=== PATIENT | male | born 1945 | race Caucasian/White ===

== ENCOUNTER 2017-01-12 12:43 | Outpatient (CLI) ==
[2017-01-12 13:09] LABS: BASOPHILS # (AUTO) 0.1 K/uL (0-0.2); BASOPHILS % (AUTO) 0.5 % (0.0-3.0); EOSINOPHILS # (AUTO) 0.2 K/ul (0.0-0.7); EOSINOPHILS % (AUTO) 1.9 % (0.0-7.0); HEMATOCRIT 42.3 % (42.0-52.0); HEMOGLOBIN 14.1 g/dl (14.0-18.0); LYMPHOCYTES % (AUTO) 20.8 (10.0-50.0); MEAN CORPUSCULAR HEMOGLOBIN 30.4 pg (27.0-31.0); MEAN CORPUSCULAR HGB CONC 33.3 (31.8-35.4); MEAN CORPUSCULAR VOLUME 91.2 fl (80.0-94.0); MONOCYTES # (AUTO) 0.6 K/uL (0.4-2.0); MONOCYTES % (AUTO) 6.7 (0-10); NEUTROPHILS # (AUTO) 6.6 K/ul (2.0-6.9); NEUTROPHILS % (AUTO) 69.1; PLATELET COUNT 236 10^3/uL (140-440); RED BLOOD COUNT 4.64 10^6/ul (4.70-6.10); WHITE BLOOD COUNT 9.47 K/ul (4.2-10.2)
[2017-01-12 13:53] LABS: ALBUMIN 3.9 g/dL (3.4-5.0); ALBUMIN/GLOBULIN RATIO 0.89; ANION GAP 16.3; BILIRUBIN,TOTAL 0.5 mg/dL (0.00-1.20); BUN/CREATININE RATIO 13.66; CALCIUM 10.6 mg/dL (8.2-10.2); CHOL/HDL RATIO 4.8 (4.5-6.4); CREATININE 1.39 mg/dL (0.60-1.10); POTASSIUM 4.3 mmol/L (3.5-5.1); TOTAL PROTEIN 8.3 g/dL (5.8-8.1)
== END 2017-01-12 12:44 | disposition home or self-care (01) ==
LOC: LAB 12:43
PROVIDERS: ATTEND Emergency Medicine
DX: E11.9 Type 2 diabetes mellitus without complications (principal); E78.5 Hyperlipidemia, unspecified; I10 Essential (primary) hypertension; I25.10 Atherosclerotic heart disease of native coronary artery without angina pectoris
CPT/HCPCS: 36415; 80053; 80061; 83036; 84443; 85025

== ENCOUNTER 2017-04-13 12:53 | Outpatient (CLI) | payer OTHER ==
[2017-04-13 13:05] LABS: BASOPHILS % (AUTO) 0.6 % (0.0-3.0); EOSINOPHILS # (AUTO) 0.2 K/ul (0.0-0.7); EOSINOPHILS % (AUTO) 2.5 % (0.0-7.0); HEMATOCRIT 43.3 % (42.0-52.0); HEMOGLOBIN 14.6 g/dl (14.0-18.0); LYMPHOCYTES # (AUTO) 1.8 K/uL (0.60-3.4); LYMPHOCYTES % (AUTO) 24.8 (10.0-50.0); MEAN CORPUSCULAR HEMOGLOBIN 31.5 pg (27.0-31.0); MEAN CORPUSCULAR HGB CONC 33.7 (31.8-35.4); MEAN CORPUSCULAR VOLUME 93.3 fl (80.0-94.0); MONOCYTES # (AUTO) 0.6 K/uL (0.4-2.0); MONOCYTES % (AUTO) 7.9 (0-10); NEUTROPHILS # (AUTO) 4.6 K/ul (2.0-6.9); NEUTROPHILS % (AUTO) 63.2; PLATELET COUNT 209 10^3/uL (140-440); RED BLOOD COUNT 4.64 10^6/ul (4.70-6.10); WHITE BLOOD COUNT 7.26 K/ul (4.2-10.2)
[2017-04-13 13:37] LABS: ALBUMIN/GLOBULIN RATIO 0.98; ANION GAP 15.8; BILIRUBIN,TOTAL 0.4 mg/dL (0.00-1.20); BUN/CREATININE RATIO 9.83; CALCIUM 10.5 mg/dL (8.2-10.2); CHOL/HDL RATIO 5.1 (4.5-6.4); CREATININE 1.22 mg/dL (0.60-1.10); POTASSIUM 3.8 mmol/L (3.5-5.1); TOTAL PROTEIN 8.1 g/dL (5.8-8.1)
== END 2017-04-13 12:54 | disposition home or self-care (01) ==
LOC: LAB 12:53
PROVIDERS: ATTEND Emergency Medicine
DX: E11.9 Type 2 diabetes mellitus without complications (principal); I10 Essential (primary) hypertension; I25.10 Atherosclerotic heart disease of native coronary artery without angina pectoris
CPT/HCPCS: 36415; 80053; 80061; 83036; 84443; 85025

== ENCOUNTER 2017-09-11 18:01 | Emergency (ER) | payer OTHER ==
[2017-09-11 18:08] VITALS: TEMP 99.2; BMI 29.5
--- NOTE | 2017-09-11 19:01 | ED.PDOC ---
General Stated Complaint: Knee pain. Patient states he was mowing his grass today and slipped twisted his rt knee, falling to the ground on hip and knee. Complains of pain along Rt infrapatellar region and medial knee. Could not place weight on rt leg after accident Time Seen by Physician: 18:50 Mode of Arrival: Wheelchair Information Source: Patient, Family Exam Limitations: No limitations Nursing and Triage Documentation Reviewed and Agree: Yes Reviewed sepsis parameters & appropriate labs ordered?: Yes System Inflammatory Response Syndrome: Not Applicable System Inflammatory Response Syndrome: Not Applicable <WHITNEY ETIENNE - Last Filed: 09/11/17 19:51> <MARY CARMEN VEGAS - Last Filed: 09/12/17 03:19> ED Provider: Dr. MARY CARMEN VEGAS Chief Complaint: Knee Pain/Injury Primary Care Provider: [facility] Sepsis Protocol: For patient's 13 years and over: Temp is 96.8 and below OR 101 and greater Pulse >90 BPM Resp >20/minute Acutely Altered Mental Status Are patient's symptoms suggestive of a new infection, such as: -Pneumonia -Skin, Soft Tissue -Endocarditis -UTI -Bone, Joint Infection -Implantable Device -Acute Abdominal Infection -Wound Infection -Meningitis -Blood Stream Catheter Infection -Unknown Musculoskeletal Complaint Exam - Knee Pain Complaint/Exam Mechanism of Injury: Reports: Trauma Symptoms Are: Still present Onset of Pain: Reports: Immediate Initial Severity: Moderate Current Severity: Moderate Location: Reports: Diffuse Character: Reports: Sharp, Aching Alleviating: Reports: Rest Aggravating: Reports: Movement, Weight bearing <WHITNEY ETIENNE - Last Filed: 09/11/17 19:51> Review of Systems - Review Of Systems Constitutional: Reports: No symptoms Musculoskeletal: Reports: Joint pain, Joint swelling All Other Systems: Reviewed and Negative <MARY CARMEN VEGAS - Last Filed: 09/12/17 03:19> Past Medical History - Past Medical History Previously Healthy: Yes Endocrine: Reports: None, DM 2, Dyslipidemia Cardiovascular: Reports: None, Hypertension Respiratory: Reports: None, COPD Hematological: Reports: None Gastrointestinal: Reports: None, GERD Genitourinary: Reports: None Neuro/Psych: Reports: None Musculoskeletal: Reports: None, Arthritis, Back Pain Cancer: Reports: None - Surgical History General Surgical History: Reports: None - Family History Family History: Reports: None - Social History Smoking Status: Current every day smoker, Heavy tobacco smoker Hx Substance Use: No Alcohol Screening: None <WHITNEY ETIENNE - Last Filed: 09/11/17 19:51> Physical Exam - Physical Exam Appearance: Well-appearing, No pain distress, Well-nourished Eyes: MARIAMA, EOMI, Conjunctiva clear ENT: Ears normal, Nose normal, Oropharynx normal Respiratory: Airway patent, Breath sounds clear, Breath sounds equal, Respirations nonlabored Cardiovascular: RRR, Pulses normal, No rub, No murmur GI/: Soft, Nontender, No masses, Bowel sounds normal, No Organomegaly Musculoskeletal: Normal strength (No deformity), ROM intact, No edema, No calf tenderness, Limited ROM (Rt knee painful with ROM; Neg anterior posterior drawer sign; tenderness to palpaitioo), Limited strength (Stength testing Rt Knee limited to degree of pain ) Skin: Warm, Dry, Normal color Neurological: Sensation intact, Motor intact, Reflexes intact, Cranial nerves intact, Alert, Oriented Psychiatric: Affect appropriate, Mood appropriate <WHITNEY ETIENNE - Last Filed: 09/11/17 19:51> Interpretation - Radiology Interpretation Radiology Interpretation By: Radiologist Radiology Results: Negative (No acute fracture or subluxation. Possible prepatellar hematoma) Exam Interpreted: CT Scan (knee ) <MARY CARMEN VEGAS - Last Filed: 09/12/17 03:19> Critical Care Note - Critical Care Note Total Time (mins): 0 <MARY CARMEN VEGAS - Last Filed: 09/12/17 03:19> - Course Orders, Labs, Meds: Orders Category Date Time Status CRUTCHES [ED CRUTCHES] .ONCE EMERGENCY 09/11/17 19:50 Active ED SPLINT APPLICATION .ONCE EMERGENCY 09/11/17 19:50 Active Ice [ED APPLY ICE AFFECTED AREA] .ONCE EMERGENCY 09/11/17 19:[address] KNEE RIGHT WITHOUT CONTRAST Stat RADS 09/11/17 18:58 Completed Vital Signs: Temp Pulse Resp BP Pulse Ox 09/11/17 20:20 132/78 09/11/17 18:02 99.2 F 86 20 172/75 H 94 L Departure - Departure Time of Disposition: 19:45 <WHITNEY ETIENNE - Last Filed: 09/11/17 19:51> - Departure Pt referred to PMD for follow-up: Yes IPMP verified?: No Disposition Discussed With: Patient, Family <MARY CARMEN VEGAS - Last Filed: 09/12/17 03:19> - Departure Disposition: HOME SELF-CARE Discharge Problem: Strain of right knee and leg Qualifiers: Encounter type: initial encounter Qualified Code(s): S86.911A - Strain of unspecified muscle(s) and tendon(s) at lower leg level, right leg, initial encounter Instructions: Knee Pain (ED), Knee Immobilizer (ED) Condition: Good Additional Instructions: Follow up with PCP iin 2-3 days. use gen to keep it stable. Prescriptions: Ibuprofen 600 mg PO Q6HR PRN #30 tablet PRN Reason: Knee Joint Pain Allergies/Adverse Reactions: Allergies No Known Allergies Allergy (Verified 09/11/17 18:10) Home Medications: Ambulatory Orders Aspirin [Aspirin EC] 1 tab PO DAILY 08/29/13 [place]-3 Fatty Acids [Fish Oil] 4 tab PO DAILY 08/29/13 Ferrous Sulfate [Iron] 325 mg PO DAILY 11/02/14 Cyanocobalamin (Vitamin B-12) [B-12] 1,000 mcg PO DAILY tab-cap 11/09/16 Ibuprofen 600 mg PO Q6HR PRN #30 tablet 09/11/17
--- NOTE | 2017-09-11 20:03 | CT ---
EXAM: CT right knee without contrast HISTORY: Right knee pain post injury TECHNIQUE: Multi-slice transaxial helical with coronal and sagittal reformed images COMPARISON: None FINDINGS: The patellofemoral and femoral tibial joint spaces are maintained with marginal osteophytes . The bones are osteopenic. A small suprapatellar effusion is noted. The prepatellar soft tissues are prominent. No Jack's cyst is appreciated. Small loose osteochondral bodies are suggested at th e posteromedial aspect of the femoral tibial joint line. Vascular calcifications are noted. The bones are free of suspicious osteolytic or osteoblastic lesions. IMPRESSION: 1. No acute fracture or subluxation. 2. Possible prepatellar hematoma. 3. Small suprapatellar effusion. 4. Tricompartmental osteoarthritis, mild. 5. Osteopenia and ASCVD. 6. Small loose osteochondral bodies suggested the posterior aspect of the femoral tibial joint line medially. Recommend correlation with MRI.
[2017-09-11 20:25] VITALS: BP 132/78
== END 2017-09-11 20:21 | disposition home or self-care (01) ==
LOC: ED 18:01
DX: S86.911A Strain of unspecified muscle(s) and tendon(s) at lower leg level, right leg, initial encounter (principal); W19.XXXA Unspecified fall, initial encounter; F17.210 Nicotine dependence, cigarettes, uncomplicated
CPT/HCPCS: 99283

== ENCOUNTER 2017-10-10 13:00 | Outpatient (RCR) ==
--- NOTE | 2017-09-21 16:12 | RS.OPPTEV2 ---
Date of Note: 09/21/17 Visit #: 1 Date of Evaluation: 09/21/17 Payer Source: MEDICARE Treatment Diagnosis: Right knee pain, knee stiffness, instability. History of Condition/Mechanism of Injury:: Patient states he slipped and fell while mowing on 09/11/17. States he went down on the right knee and also twisted it. Reports no prior problems with the right knee joint. Prior Level of Function.....Patient was independent with: ADL's, Self Care, Ambulation/Mobility, Community Integration/Access Functional Limitations: ADL's, Lifting, Sitting, Standing, Bending, Squatting, Ambulation, Community Access/Integration Current Subjective/complaints:: Mr. Glasgow reports having pain and swelling in the right knee. His sister states he is taking Prednisone and Hydrocodone for this injury. States he was given a knee support to wear yesterday. States he uses a straight cane since he fell, when he is ambulating outside the home. His sister reports Mr. Glasgow has fallen five times since the initial fall on September 11. Mr. Glasgow says he is unsure if his knee barry or if he falls due to his balance. His sister states that she has to help him get up from a chair. Also reports he has difficulty getting in/out of a vehicle. He has a few steps to get up onto the porch. Treatment Side (optional): Right Medical History Medical History: Hypertension, COPD, Diabetes Surgical History Comments:: Stent in right LE Hx Home Medications: pantoprazole,diltiazem,fenofibrate,lisinopril,atorvastatin, low dose aspirin, prednisone,hydrocodone Patient's Goals: His goal is to get relief of right knee pain and swelling. Pain Assessment - Pain Description Pain Location: right knee joint Current Pain Intensity: 7/10 Worst Pain Intensity: not quantified Functional Outcome Measure LE Functional Scale: 12 (1280=85% impairment) - G Codes & Severity Modifier G Codes & Modifier: Mobility current CM. Mobility goal CK Source of G Code score: LE functional scale Observation - Observation Inspection: Patient presents to the department with a neoprene knee support with medial and lateral metal stays, on the right knee joint. Upon removal of the knee support, the right knee demonstrates bruising along the medial side of the knee joint. Girth Measurement Lower: Superior patella: right 38 cm, left 36 cm. mid patella: right 44 cm, left 42 cm. inferior patella: right 43.5 cm, right 42 cm Gait - Gait Pattern Gait Comments: Mr. Glasgow demonstrates need for min-mod assistance with sit to stand transfer from chair in department prior to evaluation. Pt ambulates with a straight cane in the right hand, with decreased right knee flexion during swing phase. Also exhibits decreased stance phase on the right LE. - Left Knee ROM Left Knee Extension: full extension Left Knee Flexion: 123 (degrees AROM) - Right Knee ROM Right Knee Extension: -3 degrees from full extension Right Knee Flexion: 92 (degrees AROM) - Left Knee Strength Left Knee Extension: 4+ Good + Left Knee Flexion: 5 Normal - Right Knee Strength Right Knee Extension: 4- Good- Right Knee Flexion: 4+ Good + - Special Tests Knee Anterior Drawer Test: Negative Right Knee Posterior Drawer Test: Negative Right Knee Valgus Stress Test: Positive Right (pain, with minimal hypermobility) Knee Varus Stress Test: Negative Right Knee Quita Test: Negative Right Patella Apprehension Test: Negative Right Patellar Compression Test: Positive Right Palpation Comments:: Tenderness with palpation along the medial aspect of the right knee. Reports slight tenderness with palpation immediately medial and lateral to the patella. No tenderness with palpation over the patella or quad tendon. Sensation - Sensation Right Lower Extremity: Intact/Normal Left Lower Extremity: Intact/Normal Additional Comments: Additional Comments: SLR in supine 50 degrees bilaterally. - Treatment Modality: Electrical Stim Unattended Parameters/Method Applied: X 15 mins HVGS up to 145 peak volts in X pattern over the right knee Patient Position: Supine - Heat/Cryotherapy Treatment: Cryotherapy (with Estim to the right knee) Interventions - Exercise/Activities/Manual Therapy Exercises/Activities: Patient and sister instructed in HEP of ankle pumps, quad sets, and standing HS curls for knee AROM. Given recipe for ice pack using rubbing alcohol. Advised to ice and elevate the right knee, especially at the end of the day. Manual Therapy: NA HOME EXERCISE PROGRAM: ankle pumps, quad sets, and standing HS curls for knee AROM - Charges Timed Code Treatment Minutes: 15 mins (estim) Total Treatment Time: 48 mins Procedures billed for this date of service:: EVAL Low EVALUATION COMPLEXITY LEVEL EVALUATION COMPLEXITY LEVEL: HISTORY: Medium (Diabetes, HTN), EXAM OF BODY SYSTEMS: Medium (limited knee AROM, gait difficulty, falls), CLINICAL PRESENTATION: Low, CLINICAL DECISION MAKING: Low Assessment Assessment: Patient presents to therapy with a diagnosis of right knee instability. He presents today with limited right knee AROM, decreased quad strength, and moderate swelling. He has had repeated falls since his initial injury and also reports difficulty with transfers from a chair and in/out of his vehicle. He demonstrates good potential to benefit from modalities and exercises to reduce swelling and regain functional AROM to return to his prior level of function. Patient Education: Education of diagnosis, Body/Joint mechanics, Home Exercise Program, Home Safety, Activity Modification, Education of Plan of Care Rehab Potential: Good Short Term Goals Goal #1: Pt independent and compliant with HEP. Goal to be met by: 10/01/17 Goal #2: Right knee flexion to 110 degrees. Goal to be met by: 10/05/17 Goal #3: Right quad strength 4/5. Goal to be met by: 10/05/17 Goal #4: Pt able to transfer sit to stand w/ CGA and good safety. Goal to be met by: 10/05/17 Custodial Goals Goal #1: Pt knows HEP and to continue ex's to maintain functional level at D/C. Goal to be met by: 10/31/17 Goal #2: Score on LE functional scale improved to 45% impaired or less. Goal to be met by: 10/31/17 Goal #3: Pt to amb. without assistive device community distances with good safety. Goal to be met by: 10/31/17 Goal #4: Pt able to return to mowing and other regular activities without difficulty Goal to be met by: 10/31/17 Plan - Treatment to be Provided Procedures: Therapeutic Exercises, Therapeutic Activity, Gait Training, Patient Education Modalities: Electrical Stimulation, Ultrasound/Phonophoresis, Cryotherapy - Treatment Plan Frequency: 3 X week Duration: 3 weeks ORDER # VISITS AND/OR THROUGH DATE: 10/31/17 - Treatment Code (1) Knee pain Code(s): M25.569 - PAIN IN UNSPECIFIED KNEE Qualifiers: Chronicity: acute Laterality: right Qualified Code(s): M25.561 - Pain in right knee (2) Knee stiffness Qualifiers: Laterality: right Qualified Code(s): M25.661 - Stiffness of right knee, not elsewhere classified (3) Effusion of right knee Code(s): M25.461 - EFFUSION, RIGHT KNEE Comments: M25.461 (4) Gait difficulty Code(s): R26.9 - UNSPECIFIED ABNORMALITIES OF GAIT AND MOBILITY Comments: R26.9 (5) Recurrent right knee instability Code(s): M23.51 - CHRONIC INSTABILITY OF KNEE, RIGHT KNEE Comments: M23.51
--- NOTE | 2017-09-25 15:24 | RS.OPPTDN ---
Subjective Date of Note: 09/25/17 Visit #: 2 Date of Evaluation: 09/21/17 Payer Source: MEDICARE Treatment Diagnosis: Right knee pain, knee stiffness, instability. Current Subjective/complaints:: Patient c/o R knee pain being painful and swollen. He says the treatment helped at the evaluation. His sister says he wears the neoprene brace all day and then she removes it at night and places ice behind and on top of his knee as PT instructed. Pain Assessment - Pain Description Pain Location: surrounding the R knee - Treatment Modality: Electrical Stim Unattended Parameters/Method Applied: hivolt 4 large pads crossed over the R knee after therex x 20 mins 60-140 pk volts Patient Position: Supine - Heat/Cryotherapy Treatment: Cryotherapy (anterior/posterior R knee) Interventions - Exercise/Activities/Manual Therapy Exercises/Activities: Patient receives AROM to the R knee, QS, SAQ (no weight), DF with red tband, ball squeezes, red tband for hooklying hip abd, hip abd with knee extended, AP, and heel slides. All 2x10. Total minutes of Exercise: 24 Manual Therapy: NA HOME EXERCISE PROGRAM: ankle pumps, quad sets, and standing HS curls for knee AROM - Charges Timed Code Treatment Minutes: 24 Total Treatment Time: 44 Procedures billed for this date of service:: cp, estim(un), ex2 Assessment: Patient experiencing pain relief from estim and demo improved knee flexion to near comparison to the L. Patient able to jil all therex with exception of SAQ being very fatiguing. Patient Education: Body/Joint mechanics, Home Exercise Program, Education of Plan of Care Patient demonstrates compliance with HEP?: Yes Short Term Goals Goal #1: Pt independent and compliant with HEP. Goal to be met by: 10/01/17 Progress towards Goal:: Progressing Goal #2: Right knee flexion to 110 degrees. Goal to be met by: 10/05/17 Progress towards Goal:: Progressing Goal #3: Right quad strength 4/5. Goal to be met by: 10/05/17 Goal #4: Pt able to transfer sit to stand w/ CGA and good safety. Goal to be met by: 10/05/17 Marketing Operations Intern Goals Goal #1: Pt knows HEP and to continue ex's to maintain functional level at D/C. Goal to be met by: 10/31/17 Goal #2: Score on LE functional scale improved to 45% impaired or less. Goal to be met by: 10/31/17 Goal #3: Pt to amb. without assistive device community distances with good safety. Goal to be met by: 10/31/17 Goal #4: Pt able to return to mowing and other regular activities without difficulty Goal to be met by: 10/31/17 Plan PLAN OF CARE EXPIRES ON:: 10/31/17 ORDER # VISITS AND/OR THROUGH DATE: 10/31/17 PLAN: Patient to continue with modalties and therex to the R knee
--- NOTE | 2017-09-26 14:23 | RS.OPPTDN ---
Subjective Date of Note: 09/26/17 Visit #: 3 Date of Evaluation: 09/21/17 Payer Source: MEDICARE Treatment Diagnosis: Right knee pain, knee stiffness, instability. Current Subjective/complaints:: Patient says he believes that he is doing better. Reports his swelling is down and he is performing HEP. Patient has been using his cane now into the L hand as instructed at previous visit. - Treatment Modality: Electrical Stim Unattended Parameters/Method Applied: 4 large pads crossed Hivolt @ 165 pk volts over the R knee after therex x 20 mins Patient Position: Supine - Heat/Cryotherapy Treatment: Cryotherapy (anterior/posterior knee) Interventions - Exercise/Activities/Manual Therapy Exercises/Activities: Patient receives AROM to the R knee and hamstring/heel cord stretching, QS, SAQ (no weight) 2x6, DF with red tband, ball squeezes, red tband for hooklying hip abd, hip abd with knee extended, AP, and heel slides. All 2x10. LAQ, AP x 15. Began stationary bike for x 3 mins Total minutes of Exercise: 25 Manual Therapy: NA HOME EXERCISE PROGRAM: ankle pumps, quad sets, and standing HS curls for knee AROM - Charges Timed Code Treatment Minutes: 25 Total Treatment Time: 45 Procedures billed for this date of service:: cp, estim (un), ex2 Assessment: Patient progressing well with R knee flexion and general strengthening. He is compliant with HEP and jil beginning stationary bike well. Patient Education: Education of diagnosis, Home Safety Patient demonstrates compliance with HEP?: Yes Short Term Goals Goal #1: Pt independent and compliant with HEP. Goal to be met by: 10/01/17 Progress towards Goal:: Progressing Goal #2: Right knee flexion to 110 degrees. Goal to be met by: 10/05/17 Progress towards Goal:: Met Goal #3: Right quad strength 4/5. Goal to be met by: 10/05/17 Goal #4: Pt able to transfer sit to stand w/ CGA and good safety. Goal to be met by: 10/05/17 Progress towards Goal:: Met Fpc Goals Goal #1: Pt knows HEP and to continue ex's to maintain functional level at D/C. Goal to be met by: 10/31/17 Goal #2: Score on LE functional scale improved to 45% impaired or less. Goal to be met by: 10/31/17 Goal #3: Pt to amb. without assistive device community distances with good safety. Goal to be met by: 10/31/17 Goal #4: Pt able to return to mowing and other regular activities without difficulty Goal to be met by: 10/31/17 Plan PLAN OF CARE EXPIRES ON:: 10/31/17 ORDER # VISITS AND/OR THROUGH DATE: 10/31/17 PLAN: Patient to continue with modalities and strengthening to the R knee.
--- NOTE | 2017-09-28 15:05 | RS.OPPTDN ---
Subjective Date of Note: 09/28/17 Visit #: 4 Date of Evaluation: 09/21/17 Payer Source: MEDICARE Treatment Diagnosis: Right knee pain, knee stiffness, instability. Current Subjective/complaints:: Patient says he thinks he is doing better. Reports he is walking easier and feels he is bending his knee more. He is working on HEP often. Pain Assessment - Pain Description Pain Location: R knee - Treatment Modality: Electrical Stim Unattended Parameters/Method Applied: hivolt 4 large pads hivolt @ 175-180 pk volts x 20 mins following therex to R knee crossed Patient Position: Supine - Heat/Cryotherapy Treatment: Cryotherapy (anterior/post R knee with estim) Interventions - Exercise/Activities/Manual Therapy Exercises/Activities: Patient receives AROM to the R knee and hamstring/heel cord stretching, QS, SAQ (no weight)and AA for terminal range 2x10, DF with green tband, ball squeezes, green tband for hooklying hip abd, hip abd with knee extended, AP, and heel slides. All 2x10. LAQ, AP x 15. Stationary bike forward x 4 mins. Assisted with knee brace placement. Measurements for ROM and girth taken. Total minutes of Exercise: 25 Manual Therapy: NA HOME EXERCISE PROGRAM: ankle pumps, quad sets, and standing HS curls for knee AROM - Objective Findings Observations,measurements,etc.: Superior Patella: 43 cm (42 cm L). Mid Patella: 42 cm (42 cm L). Inferior Patella: 37.75 (36 cm L). Girth measurements down by 0.5 cm to 2 cm grossly. -1 to 126 degrees R knee (L is 0 to 123 degrees) - Charges Timed Code Treatment Minutes: 25 Total Treatment Time: 45 Procedures billed for this date of service:: cp, estim (un), ex2 Assessment: Patient demo decreased swelling and improved ROM to compare with the L knee. Patient progressing with all general strengthening, only having difficulty with end range SAQ. Patient Education: Body/Joint mechanics, Home Exercise Program, Education of Plan of Care Patient demonstrates compliance with HEP?: Yes Short Term Goals Goal #1: Pt independent and compliant with HEP. Goal to be met by: 10/01/17 Progress towards Goal:: Progressing Goal #2: Right knee flexion to 110 degrees. Goal to be met by: 10/05/17 Progress towards Goal:: Met Goal #3: Right quad strength /. Goal to be met by: 10/05/17 Progress towards Goal:: Progressing Goal #4: Pt able to transfer sit to stand w/ CGA and good safety. Goal to be met by: 10/05/17 Progress towards Goal:: Met Wafer Line Worker Goals Goal #1: Pt knows HEP and to continue ex's to maintain functional level at D/C. Goal to be met by: 10/31/17 Progress towards goal: Progressing Goal #2: Score on LE functional scale improved to 45% impaired or less. Goal to be met by: 10/31/17 Goal #3: Pt to amb. without assistive device community distances with good safety. Goal to be met by: 10/31/17 Goal #4: Pt able to return to mowing and other regular activities without difficulty Goal to be met by: 10/31/17 Plan PLAN OF CARE EXPIRES ON:: 10/31/17 ORDER # VISITS AND/OR THROUGH DATE: 10/31/17 PLAN: Patient to continue with progressive therex
--- NOTE | 2017-10-01 14:27 | RS.OPPTDN ---
Subjective Date of Note: 10/01/17 Visit #: 5 Date of Evaluation: 09/21/17 Payer Source: MEDICARE Treatment Diagnosis: Right knee pain, knee stiffness, instability. Current Subjective/complaints:: Patient says, "I'm doing better." He says his is able to do most everything at home and the more difficult tasks, he just takes his time. - Treatment Modality: Electrical Stim Unattended Parameters/Method Applied: 4 large pads crossed over R knee hivolt @ 195-205 pk volts x 20 mins after therex Patient Position: Supine - Heat/Cryotherapy Treatment: Cryotherapy Interventions - Exercise/Activities/Manual Therapy Exercises/Activities: Patient receives AROM to the R knee and hamstring/heel cord stretching, QS, SAQ (no weight) 2x10, DF with green tband, ball squeezes, green tband for hooklying hip abd, hip abd with knee extended, AP, and heel slides. Ended with 2 more sets of 10: QS, ham curls/DF with green tband, and SAQ. LAQ, AP x 15. Stationary bike forward x 4 mins. Assisted with knee brace placement. Total minutes of Exercise: 24 Manual Therapy: NA HOME EXERCISE PROGRAM: ankle pumps, quad sets, and standing HS curls for knee AROM - Charges Timed Code Treatment Minutes: 24 Total Treatment Time: 44 Procedures billed for this date of service:: cp, estim (un), ex2 Assessment: Patient progressing well with all strengthening. He is maintaining decreased swelling to the R knee and reduced pain level. SAQ was performed steadily today and able to complete full set with improved control and full range. Patient Education: Body/Joint mechanics, Home Exercise Program, Education of Plan of Care Patient demonstrates compliance with HEP?: Yes Short Term Goals Goal #1: Pt independent and compliant with HEP. Goal to be met by: 10/01/17 Progress towards Goal:: Progressing Goal #2: Right knee flexion to 110 degrees. Goal to be met by: 10/05/17 Progress towards Goal:: Met Goal #3: Right quad strength 4/5. Goal to be met by: 10/05/17 Progress towards Goal:: Progressing Goal #4: Pt able to transfer sit to stand w/ CGA and good safety. Goal to be met by: 10/05/17 Progress towards Goal:: Met [facility] Goals Goal #1: Pt knows HEP and to continue ex's to maintain functional level at D/C. Goal to be met by: 10/31/17 Progress towards goal: Progressing Goal #2: Score on LE functional scale improved to 45% impaired or less. Goal to be met by: 10/31/17 Goal #3: Pt to amb. without assistive device community distances with good safety. Goal to be met by: 10/31/17 Goal #4: Pt able to return to mowing and other regular activities without difficulty Goal to be met by: 10/31/17 Plan PLAN OF CARE EXPIRES ON:: 10/31/17 ORDER # VISITS AND/OR THROUGH DATE: 10/31/17 PLAN: Patient should continue TIW for further strengthening and edema control
--- NOTE | 2017-10-03 14:33 | RS.OPPTDN ---
Subjective Date of Note: 10/03/17 Visit #: 6 Date of Evaluation: 09/21/17 Payer Source: MEDICARE Treatment Diagnosis: Right knee pain, knee stiffness, instability. Current Subjective/complaints:: Patient's sister says Mr. Glasgow's knee is swollen today. He says he has been able to take out trash and remove large limbs out of the yard recently without difficulty. - Treatment Modality: Electrical Stim Unattended Parameters/Method Applied: hivolt 4 large pads @ 215 pk volts x 20 mins after supine therex Treatment Area: crossed over the R knee Patient Position: Supine - Heat/Cryotherapy Treatment: Cryotherapy Interventions - Exercise/Activities/Manual Therapy Exercises/Activities: Patient receives AROM to the R knee and hamstring/heel cord stretching, QS, SAQ (no weight) 2x10, DF with green tband, ball squeezes, green tband for hooklying hip abd, hip abd with knee extended, and heel slides. Ended with 2 more sets of 10: QS, ham curls/DF with green tband, and SAQ. All others 2/10. Re-applied brace. Began leg press @ 30 and 45# 2x10 reps. LAQ, AP x 15. Stationary bike forward x 4 mins. Assisted with knee brace placement. Total minutes of Exercise: 26 Manual Therapy: NA HOME EXERCISE PROGRAM: ankle pumps, quad sets, and standing HS curls for knee AROM - Charges Timed Code Treatment Minutes: 26 Total Treatment Time: 46 Procedures billed for this date of service:: cp, estim (un), ex2 Assessment: Patient demo slight increase in swelling to the superior aspect of the R knee. With modalities and therex, this was reduced. Improved ability to perform SLR and SAQ. Progressing with quad strengthening as he began leg press today. Patient Education: Body/Joint mechanics Comments: Encouraged patient to avoid twisting the knee while performing ADLs/ yardwork Patient demonstrates compliance with HEP?: Yes Short Term Goals Goal #1: Pt independent and compliant with HEP. Goal to be met by: 10/01/17 Progress towards Goal:: Progressing Goal #2: Right knee flexion to 110 degrees. Goal to be met by: 10/05/17 Progress towards Goal:: Met Goal #3: Right quad strength 4/5. Goal to be met by: 10/05/17 Progress towards Goal:: Met Goal #4: Pt able to transfer sit to stand w/ CGA and good safety. Goal to be met by: 10/05/17 Progress towards Goal:: Met Dynamometer Repairer Goals Goal #1: Pt knows HEP and to continue ex's to maintain functional level at D/C. Goal to be met by: 10/31/17 Progress towards goal: Progressing Goal #2: Score on LE functional scale improved to 45% impaired or less. Goal to be met by: 10/31/17 Goal #3: Pt to amb. without assistive device community distances with good safety. Goal to be met by: 10/31/17 Goal #4: Pt able to return to mowing and other regular activities without difficulty Goal to be met by: 10/31/17 Plan PLAN OF CARE EXPIRES ON:: 10/31/17 ORDER # VISITS AND/OR THROUGH DATE: 10/31/17 PLAN: Patient to continue with modalities and progressive therex to R knee.
--- NOTE | 2017-10-05 14:32 | RS.OPPTDN ---
Subjective Date of Note: 10/05/17 Visit #: 7 Date of Evaluation: 09/21/17 Payer Source: MEDICARE Treatment Diagnosis: Right knee pain, knee stiffness, instability. Current Subjective/complaints:: Patient says he feels he is getting better and better each day. He says the ice/estim helps a lot. Reports that he can walk around short distances in his home independently without needing his cane. He says his knee pops intermittently, but does not produce pain. Mr. Glasgow reports performing HEP. Pain Assessment - Pain Description Pain Location: superior portion of the R knee - Treatment Modality: Electrical Stim Unattended Parameters/Method Applied: hivolt 4 large pads channel 1 superiorally @ 255 pk volts and channel 2 inferiorally @ 225 pk volts x 20 mins after supine therex. Patient Position: Supine - Heat/Cryotherapy Treatment: Cryotherapy Interventions - Exercise/Activities/Manual Therapy Exercises/Activities: Patient receives AROM to the R knee and hamstring/heel cord stretching, QS, SAQ (no weight) 2x10, SLR (AA) 2x10, DF with green tband, ball squeezes, green tband for hooklying hip abd, hip abd with knee extended, and heel slides. Ended with 2 more sets of 10: QS, ham curls/DF with green tband, and SAQ. All others 2/10. Girth measurements taken. Re-applied brace. Continued with leg press @ 30, 45, and 60# 10 reps. Total minutes of Exercise: 31 Manual Therapy: NA HOME EXERCISE PROGRAM: ankle pumps, quad sets, and standing HS curls for knee AROM - Objective Findings Observations,measurements,etc.: Girth measurements: Superior R patella: 43, Mid patella: 42, and Inferior patella: 36.75. No change from last week regarding swelling at the superior patella, no swelling present at mid patella, and improvement seen at inferior patella by 1 cm. - Charges Timed Code Treatment Minutes: 31 Total Treatment Time: 51 Procedures billed for this date of service:: cp, estim (un), ex2 Assessment: Patient demo improved swelling at the mid to inferior patella since last week. He continues to be puffy at the superior aspect. Increased difficulty with performing SAQ today, but all other therex progressing well. Patient had 1 episode of LOB anteriorally with sit to stand, but self corrected and received SBA. He was encouraged to take a moment to re-gain bal prior to amb. Patient Education: Body/Joint mechanics, Education of Plan of Care Patient demonstrates compliance with HEP?: Yes Short Term Goals Goal #1: Pt independent and compliant with HEP. Goal to be met by: 10/01/17 Progress towards Goal:: Met Goal #2: Right knee flexion to 110 degrees. Goal to be met by: 10/05/17 Progress towards Goal:: Met Goal #3: Right quad strength 4/5. Goal to be met by: 10/05/17 Progress towards Goal:: Met Goal #4: Pt able to transfer sit to stand w/ CGA and good safety. Goal to be met by: 10/05/17 Progress towards Goal:: Met Notcher Goals Goal #1: Pt knows HEP and to continue ex's to maintain functional level at D/C. Goal to be met by: 10/31/17 Progress towards goal: Progressing Goal #2: Score on LE functional scale improved to 45% impaired or less. Goal to be met by: 10/31/17 Progress towards goal: Progressing Comments: REassess next week Goal #3: Pt to amb. without assistive device community distances with good safety. Goal to be met by: 10/31/17 Progress towards goal: Progressing (independent intermittently at home and does not soley rely on AD in community) Goal #4: Pt able to return to mowing and other regular activities without difficulty Goal to be met by: 10/31/17 Plan PLAN OF CARE EXPIRES ON:: 10/31/17 ORDER # VISITS AND/OR THROUGH DATE: 10/31/17 PLAN: Complete 2 visits next week then plan to discharge.
--- NOTE | 2017-10-08 13:13 | RS.CXNS ---
Date of scheduled appointment: 10/08/17 Type: Rescheduled
--- NOTE | 2017-10-09 16:24 | RS.OPPTDN ---
Subjective Date of Note: 10/09/17 Visit #: 8 Date of Evaluation: 09/21/17 Payer Source: MEDICARE Treatment Diagnosis: Right knee pain, knee stiffness, instability. Current Subjective/complaints:: Patient says he is seeing improvement in pain and swelling. He reports he only feels comfortable amb with SC in/out of his home. He is able to get in/out car better and no longer has any difficulty in/ out shower. Denies falls since PT Eval. Interventions - Exercise/Activities/Manual Therapy Exercises/Activities: Patient receives AROM to the R knee and hamstring/heel cord stretching, QS, SAQ (no weight) 2x10, SLR (AA) 2x10, DF progressed to blue tband, ball squeezes, green tband for hooklying hip abd and hip flexion, hip abd with knee extended, and heel slides, ham curls with green tband. Ended with 2 more sets of 10: QS, ham curls/DF with green tband, and SAQ. All others 2 /10. Girth measurements taken. Assessed LE Functional Index. Re-applied brace. Continued with leg press @ 30, 45, 60, and 75# 10 reps. Standing at railing: hip abd, flexion, ham curls with 2# on R LE. Heel raises x 10. Total minutes of Exercise: 44 Manual Therapy: NA HOME EXERCISE PROGRAM: ankle pumps, quad sets, and standing HS curls for knee AROM - Objective Findings Observations,measurements,etc.: LE Functional Index: 44/80 or 45% impairment. Eval was 12/80 or 85% - Charges Timed Code Treatment Minutes: 44 Total Treatment Time: 44 Procedures billed for this date of service:: ex3 Assessment: Patient progressing with reduced swelling to now comparable to the L knee (.25 to 0.5 cm difference). Improved LE functional assessment from 85% to 45% impairment. Patient demo good strength per MMT for L hip and knee, but has intermittent difficulty with performing SAQ. Patient Education: Home Exercise Program, Home Safety Patient demonstrates compliance with HEP?: Yes Short Term Goals Goal #1: Pt independent and compliant with HEP. Goal to be met by: 10/01/17 Progress towards Goal:: Met Goal #2: Right knee flexion to 110 degrees. Goal to be met by: 10/05/17 Progress towards Goal:: Met Goal #3: Right quad strength 4/5. Goal to be met by: 10/05/17 Progress towards Goal:: Met Goal #4: Pt able to transfer sit to stand w/ CGA and good safety. Goal to be met by: 10/05/17 Progress towards Goal:: Met Retirement Goals Goal #1: Pt knows HEP and to continue ex's to maintain functional level at D/C. Goal to be met by: 10/31/17 Progress towards goal: Progressing Goal #2: Score on LE functional scale improved to 45% impaired or less. Goal to be met by: 10/31/17 Progress towards goal: Met (45% today) Goal #3: Pt to amb. without assistive device community distances with good safety. Goal to be met by: 10/31/17 Progress towards goal: Progressing (independent intermittently at home and does not soley rely on AD in community) Goal #4: Pt able to return to mowing and other regular activities without difficulty Goal to be met by: 10/31/17 Progress towards goal: Partially Met (patient performing other tasks than mowing ) Plan PLAN OF CARE EXPIRES ON:: 10/31/17 ORDER # VISITS AND/OR THROUGH DATE: 10/31/17 PLAN: Patient to complete final visit tomorrow, then D/c
--- NOTE | 2017-10-10 14:54 | RS.OPPTDN ---
Subjective Date of Note: 10/10/17 Visit #: 9 Date of Evaluation: 09/21/17 Payer Source: MEDICARE Treatment Diagnosis: Right knee pain, knee stiffness, instability. Current Subjective/complaints:: Patient says he is able to ascend/descend back porch steps without handrail, but using SC. Sister asks if he needs to continue to wear his brace and use SC. Patient vague about his pain rating and description (says he hurts bad at the "top of my knee," but immediately afterwards says he does not have any pain). Reports he is doing better every day. States he returns to the MD next week. Pain Assessment - Pain Description Pain Location: difficulty with description and 0-10 scale. Varies from no pain to "just a little" Pain Description: entire patella Interventions - Exercise/Activities/Manual Therapy Exercises/Activities: Patient receives AROM to the R knee and hamstring/heel cord stretching, QS, SAQ (no weight) 2x10, SLR (AA) 2x10, DF progressed to blue tband, ball squeezes, green tband for hooklying hip abd and hip flexion, hip abd with knee extended, and heel slides, ham curls with green tband. Ended with 2 more sets of 10: QS, ham curls/DF with green tband, and SAQ. All others 2 /10. Girth measurements taken. Assessed LE Functional Index. Continued with leg press @ 30, 45, 60, and 75# 10 reps. Standing at railing: hip abd, flexion, ham curls, hip ext with 2# on R LE. Heel raises x 10. Standing on thick foam for heel raises, marching, side stepping x 10. Small step up board for proper step up/down sequencing 2x10. Step ups at [employer] for deep step using handle bars for proper sequencing 2x5. Gave new HEP with green tband. Instructed patient and sister. Total minutes of Exercise: 53 Manual Therapy: NA HOME EXERCISE PROGRAM: ankle pumps, quad sets, and standing HS curls for knee AROM - Charges Timed Code Treatment Minutes: 53 Total Treatment Time: 57 Procedures billed for this date of service:: ex4 Assessment: Patient continues to demo improvement with strength to the R LE, but intermittently shows difficulty with performing SAQ. Swelling is significantly better now only 0.25 to 0.5 cm difference compared to the L knee, holding mostly at the superior patella. He continues to wear stabilizing neoprene brace constantly except at bedtime. Patient was encouraged to use it mainly with community distances now since he has maintained no falls and demo good stability/strength. He is using his cane away from home and intermittently around his house. Encouraged ice and HEP. Patient Education: Home Exercise Program, Home Safety, Education of Plan of Care Patient demonstrates compliance with HEP?: Yes Short Term Goals Goal #1: Pt independent and compliant with HEP. Goal to be met by: 10/01/17 Progress towards Goal:: Met Goal #2: Right knee flexion to 110 degrees. Goal to be met by: 10/05/17 Progress towards Goal:: Met Goal #3: Right quad strength 4/5. Goal to be met by: 10/05/17 Progress towards Goal:: Met Goal #4: Pt able to transfer sit to stand w/ CGA and good safety. Goal to be met by: 10/05/17 Progress towards Goal:: Met Correction Goals Goal #1: Pt knows HEP and to continue ex's to maintain functional level at D/C. Goal to be met by: 10/31/17 Progress towards goal: Met Goal #2: Score on LE functional scale improved to 45% impaired or less. Goal to be met by: 10/31/17 Progress towards goal: Met (45% today) Goal #3: Pt to amb. without assistive device community distances with good safety. Goal to be met by: 10/31/17 Progress towards goal: Progressing (independent intermittently at home and does not soley rely on AD in community) Goal #4: Pt able to return to mowing and other regular activities without difficulty Goal to be met by: 10/31/17 Progress towards goal: Partially Met (patient performing other tasks than mowing ) Plan PLAN OF CARE EXPIRES ON:: 10/31/17 ORDER # VISITS AND/OR THROUGH DATE: 10/31/17 PLAN: Patient has completed order and met nearly all goals. Gcodes met today as well. He is to return to MD next week.
--- NOTE | 2017-10-19 10:59 | RS.OPPTDC ---
Date of Discharge: 10/10/17 Date of Evaluation: 09/21/17 Number of Visits: 9 Treatment Diagnosis: Right knee pain, knee stiffness, instability. Current Complaints/Gains: Patient reports admitted improvement with pain, ambulation, and swelling. He states he is able to get up and down steps easier without using a handrail. States he does continue to rely on his neoprene knee brace. States he uses his straight cane intermittently. Functional Outcome Measure LE Functional Scale: 44 (44/80=45% impairment) - G Codes & Severity Modifier G Codes & Modifier: Mobility D/C CK. Mobility goal CK Source of G Code score: LE functional scale Interventions - Exercise/Activities/Manual Therapy Exercises/Activities: NA Manual Therapy: NA HOME EXERCISE PROGRAM: ankle pumps, quad sets, and standing HS curls for knee AROM - Charges Timed Code Treatment Minutes: NA Total Treatment Time: NA Procedures billed for this date of service:: NA Assessment Assessment: Mr. Glasgow has progressed well with therapy towards his goals. He presents to have met his maxium level of function at this time and demonstrates no further need for skilled therapy. He is able to continue with a HEP. Short Term Goals Goal #1: Pt independent and compliant with HEP. Goal to be met by: 10/01/17 Progress towards Goal:: Met Goal #2: Right knee flexion to 110 degrees. Goal to be met by: 10/05/17 Progress towards Goal:: Met Goal #3: Right quad strength 4/5. Goal to be met by: 10/05/17 Progress towards Goal:: Met Goal #4: Pt able to transfer sit to stand w/ CGA and good safety. Goal to be met by: 10/05/17 Progress towards Goal:: Met Residential Goals Goal #1: Pt knows HEP and to continue ex's to maintain functional level at D/C. Goal to be met by: 10/31/17 Progress towards goal: Met Goal #2: Score on LE functional scale improved to 45% impaired or less. Goal to be met by: 10/31/17 Progress towards goal: Met (45% today) Goal #3: Pt to amb. without assistive device community distances with good safety. Goal to be met by: 10/31/17 Progress towards goal: Progressing (independent intermittently at home and does not soley rely on AD in community) Goal #4: Pt able to return to mowing and other regular activities without difficulty Goal to be met by: 10/31/17 Progress towards goal: Partially Met (patient performing other tasks than mowing ) Plan Reason for Discharge:: No Further Skilled Therapy Indicated
== END 2017-10-20 23:59 | disposition short-term general hospital (02) ==
PROVIDERS: ATTEND Orthopaedic Surgery
DX: M23.51 Chronic instability of knee, right knee (principal); M25.561 Pain in right knee; M25.661 Stiffness of right knee, not elsewhere classified; M25.461 Effusion, right knee; R26.9 Unspecified abnormalities of gait and mobility

== ENCOUNTER 2017-10-12 10:17 | Outpatient (CLI) | payer OTHER | END 2017-10-12 10:18 | disposition home or self-care (01) | LOC: RHC-LAB 10:17 | PROVIDERS: ATTEND Emergency Medicine | DX: E11.9 Type 2 diabetes mellitus without complications (principal); E78.5 Hyperlipidemia, unspecified; I25.10 Atherosclerotic heart disease of native coronary artery without angina pectoris; Z12.5 Encounter for screening for malignant neoplasm of prostate | CPT/HCPCS: 36415; 80053; 80061; 83036; 84443; 85025 ==

== ENCOUNTER 2018-05-27 07:54 | Outpatient (CLI) | payer OTHER | END 2018-05-27 07:55 | disposition home or self-care (01) | LOC: LAB 07:54 | PROVIDERS: ATTEND Nurse Practitioner Family | DX: N18.2 Chronic kidney disease, stage 2 (mild) (principal); I10 Essential (primary) hypertension; E11.9 Type 2 diabetes mellitus without complications; E78.5 Hyperlipidemia, unspecified | CPT/HCPCS: 36415; 80053; 83036; 85025 ==

== ENCOUNTER 2018-10-11 09:46 | Outpatient (CLI) | END 2018-10-11 09:47 | disposition home or self-care (01) | LOC: RHC-LAB 09:46 → FCC-LAB 09:47 | PROVIDERS: ATTEND Family Medicine | DX: E11.9 Type 2 diabetes mellitus without complications (principal); I25.10 Atherosclerotic heart disease of native coronary artery without angina pectoris | CPT/HCPCS: 36415; 80053; 84443; 85025; 93005; 93010 ==